=== PATIENT | male | born 1955 | race Caucasian/White ===

== ENCOUNTER 2020-11-11 16:15 | Inpatient (IN) | payer MEDICAID ==
[~2020-11-11] VITALS: Ht 165.1 cm; Wt 81.6 kg
[2020-11-11 18:11] LABS: BASOPHILS 0.1 % (0-2); EOSINOPHILS 0 % (0-7); HEMATOCRIT 40.2 % (42.0-54.0); HEMOGLOBIN 13.4 g/dL (13.5-17.5); IMMATURE GRANULOCYTES 0.3 % (0-5); LYMPHOCYTE ABS# 1.72 10x3/uL (1.32-3.57); LYMPHOCYTES 10.1 % (15-50); MCH 31.2 pg (26.0-34.0); MCHC 33.3 g/dL (31.0-37.0); MCV 93.7 fL (80.0-100.0); MEAN PLATELET VOLUME 9.7 fL (7.4-10.4); NEUTROPHIL ABS# 14.71 10x3/uL (1.78-5.38); NEUTROPHILS 86.5 % (40-80); PLATELET COUNT 344 10x3/uL (130-400); RBC 4.29 10x6/uL (4.20-6.10); RDW 13.8 % (11.5-14.5)
[2020-11-11 18:25] LABS: CALC OSMOLALITY 275 mosm/kg (275-300); CARBON DIOXIDE 27.8 mmol/L (21.0-32.0); CHLORIDE - SERUM 103 mmol/L (98-107); CREATININE - SERUM 0.8 mg/dL (0.6-1.3); GLUCOSE 142 mg/dL (74-106); POTASSIUM - SERUM 4.3 mmol/L (3.5-5.1); SODIUM 137 mmol/L (136-145); UREA NITROGEN 13 mg/dL (7-18); eGFR NON AFRICAN AMERICAN > 90 mL/min (90-120)
[2020-11-11 18:32] LABS: APTT 25.1 SECONDS (22.8-39.4); INR 1.08 (0.85-1.17)
[2020-11-11 18:39] LABS: ALBUMIN 3.6 g/dL (3.4-5.0); ALKALINE PHOSPHATASE 67 U/L (30-120); ALT (SGPT) 40 U/L (10-68); BILIRUBIN - TOTAL 0.28 mg/dL (0.2-1.3); CKMB 6.4 U/L (0.0-3.6); CREATINE KINASE 250 UL (21-232); PRO BNP 220 pg/mL (0-125); PROTEIN - SERUM 7.5 g/dL (6.4-8.2); TROPONIN-I < 0.017 ng/mL (0.000-0.060)
[2020-11-11 20:14] VITALS: BP 144/66
[2020-11-11 23:45] VITALS: BP 146/68
[2020-11-12] VITALS: BP 146/68
[2020-11-12] MEDS ORDERED: ELIQUIS2.5 MG PO (01:27)
[2020-11-12] MEDS ORDERED: XOPENEX HFA15 GM INH (01:28)
[2020-11-12] MEDS ORDERED: TRILOGY IH (01:36)
[2020-11-12] MEDS ORDERED: XALATAN 0.0052.5 ML EACH EYE (01:38)
[2020-11-12 04:00] VITALS: BP 127/63
[2020-11-12 06:09] LABS: BASOPHILS 0 % (0-2); EOSINOPHILS 0 % (0-7); HEMATOCRIT 39.4 % (42.0-54.0); HEMOGLOBIN 12.7 g/dL (13.5-17.5); IMMATURE GRANULOCYTES 0.4 % (0-5); LYMPHOCYTE ABS# 1.86 10x3/uL (1.32-3.57); LYMPHOCYTES 12.8 % (15-50); MCH 30.5 pg (26.0-34.0); MCHC 32.2 g/dL (31.0-37.0); MCV 94.5 fL (80.0-100.0); MEAN PLATELET VOLUME 10.6 fL (7.4-10.4); MONOCYTES 2.3 % (2-11); NEUTROPHIL ABS# 12.24 10x3/uL (1.78-5.38); NEUTROPHILS 84.5 % (40-80); PLATELET COUNT 327 10x3/uL (130-400); RBC 4.17 10x6/uL (4.20-6.10); RDW 14.1 % (11.5-14.5); WBC 14.5 10x3/uL (4.8-10.8)
[2020-11-12 06:38] LABS: CALC OSMOLALITY 273 mosm/kg (275-300); CARBON DIOXIDE 27.8 mmol/L (21.0-32.0); CHLORIDE - SERUM 102 mmol/L (98-107); CREATININE - SERUM 0.7 mg/dL (0.6-1.3); GLUCOSE 150 mg/dL (74-106); MAGNESIUM - SERUM 2.4 mg/dL (1.8-2.4); PHOSPHOROUS 2.5 mg/dL (2.5-4.9); POTASSIUM - SERUM 4.7 mmol/L (3.5-5.1); SODIUM 135 mmol/L (136-145); UREA NITROGEN 15 mg/dL (7-18); eGFR NON AFRICAN AMERICAN > 90 mL/min (90-120)
[2020-11-12 08:31] LABS: BILIRUBIN NEGATIVE (NEGATIVE); KETONE NEGATIVE (NEGATIVE); NITRITE NEGATIVE (NEGATIVE); UROBILINOGEN NORMAL mg/dL (< 2)
[2020-11-12 08:55] VITALS: BP 150/78
--- NOTE | 2020-11-12 09:21 | NUR ---
ALERT AND ORIENTED. ASSESSMENT COMPLETE. GUARD AT BEDSIDE. BED LOW. CALL STARKEY AND PERSONAL ITEMS IN REACH. DENIES NEEDS. WILL CONTINUE TO MONITOR.
[2020-11-12 12:37] VITALS: BP 120/53
[2020-11-12 13:35] VITALS: Ht 165.1 cm; Wt 81.6 kg
--- NOTE | 2020-11-12 13:36 | NUR ---
RESTING IN BED. DENIES NEEDS. WILL CONTINUE TO MONITOR.
[2020-11-12 16:42] VITALS: BP 136/68
[2020-11-12 20:00] VITALS: BP 127/74
--- NOTE | 2020-11-12 21:30 | NUR ---
PT SHOWERED AND BED CHANGED. PROVIDED INCENTIVE SPIROMETER AND INSTRUCTED ON USE. PT'S INITIAL TIDAL VOLUME REACHED 2000 AND INCREASED TO 2500. NO OTHER NEEDS. GUARD AT BEDSIDE.
[2020-11-13] VITALS: BP 137/88
[2020-11-13 04:00] VITALS: BP 105/60
[2020-11-13 08:10] LABS: BASOPHILS 0 % (0-2); EOSINOPHILS 0 % (0-7); HEMATOCRIT 38.1 % (42.0-54.0); HEMOGLOBIN 12.5 g/dL (13.5-17.5); IMMATURE GRANULOCYTES 0.4 % (0-5); LYMPHOCYTE ABS# 1.83 10x3/uL (1.32-3.57); LYMPHOCYTES 10.3 % (15-50); MCH 31.1 pg (26.0-34.0); MCHC 32.8 g/dL (31.0-37.0); MCV 94.8 fL (80.0-100.0); MONOCYTES 3.3 % (2-11); NEUTROPHIL ABS# 15.25 10x3/uL (1.78-5.38); PLATELET COUNT 309 10x3/uL (130-400); RBC 4.02 10x6/uL (4.20-6.10); RDW 14.2 % (11.5-14.5); WBC 17.7 10x3/uL (4.8-10.8)
--- NOTE | 2020-11-13 08:25 | NUR ---
PT RECIEVED ORANGE JUICE AND COFFEE. SAWYER RECIEVED COFFEE. NO FURTHER NEEDS AT THIS TIME. PT HAS SHACKLES AROUND HIS RIGHT ANKLE. CL IN REACH. NO FURTHER NEEDS AT THIS TIME. RIGHT EXTERNAL JUGULAR SALINE LOCKED. WCTM
[2020-11-13 08:28] LABS: CALC OSMOLALITY 277 mosm/kg (275-300); CALCIUM 8.8 mg/dL (8.5-10.1); CARBON DIOXIDE 25.5 mmol/L (21.0-32.0); CHLORIDE - SERUM 105 mmol/L (98-107); CREATININE - SERUM 0.7 mg/dL (0.6-1.3); GLUCOSE 135 mg/dL (74-106); MAGNESIUM - SERUM 2.4 mg/dL (1.8-2.4); PHOSPHOROUS 3.1 mg/dL (2.5-4.9); POTASSIUM - SERUM 4.4 mmol/L (3.5-5.1); SODIUM 137 mmol/L (136-145); eGFR NON AFRICAN AMERICAN > 90 mL/min (90-120)
[2020-11-13 08:29] LABS: UREA NITROGEN 19 mg/dL (7-18)
[2020-11-13 09:16] VITALS: BP 137/77
--- NOTE | 2020-11-13 12:45 | NUR ---
PT CO OF BUSBY. GAVE VISTERIL PER EMAR. JACQUES AT BEDSIDE. CL IN REACH. WCTM
[2020-11-13 14:22] VITALS: BP 137/75
[2020-11-13 18:32] VITALS: BP 134/80
[2020-11-13 21:25] VITALS: BP 146/68
[2020-11-14 00:55] VITALS: BP 137/80
[2020-11-14 05:59] LABS: BASOPHILS 0.1 % (0-2); EOSINOPHILS 0 % (0-7); HEMATOCRIT 39.1 % (42.0-54.0); HEMOGLOBIN 12.8 g/dL (13.5-17.5); LYMPHOCYTE ABS# 1.69 10x3/uL (1.32-3.57); LYMPHOCYTES 10.7 % (15-50); MCHC 32.7 g/dL (31.0-37.0); MCV 94.7 fL (80.0-100.0); MEAN PLATELET VOLUME 10.9 fL (7.4-10.4); MONOCYTES 4.1 % (2-11); NEUTROPHIL ABS# 13.27 10x3/uL (1.78-5.38); NEUTROPHILS 84.1 % (40-80); PLATELET COUNT 298 10x3/uL (130-400); RBC 4.13 10x6/uL (4.20-6.10); RDW 14.2 % (11.5-14.5); WBC 15.8 10x3/uL (4.8-10.8)
[2020-11-14 06:35] LABS: CALC OSMOLALITY 275 mosm/kg (275-300); CALCIUM 8.9 mg/dL (8.5-10.1); CARBON DIOXIDE 26.7 mmol/L (21.0-32.0); CHLORIDE - SERUM 103 mmol/L (98-107); CREATININE - SERUM 0.7 mg/dL (0.6-1.3); GLUCOSE 123 mg/dL (74-106); MAGNESIUM - SERUM 2.5 mg/dL (1.8-2.4); PHOSPHOROUS 3.3 mg/dL (2.5-4.9); SODIUM 136 mmol/L (136-145); UREA NITROGEN 21 mg/dL (7-18); eGFR NON AFRICAN AMERICAN > 90 mL/min (90-120)
[2020-11-14 06:36] LABS: POTASSIUM - SERUM 5.1 mmol/L (3.5-5.1)
[2020-11-14 08:08] LABS: IMMUNOGLOBULIN A 258 mg/dL (61-437); IMMUNOGLOBULIN G 949 mg/dL (603-1613)
[2020-11-14 08:26] VITALS: BP 125/77
--- NOTE | 2020-11-14 09:00 | NUR ---
PT STATES PAIN LEVEL AT A 8/10 ON THE PAIN SCALE. CL IN REACH. ALERT, ORIENTED, AND SHACKLE TO RIGHT ANKLE. GUARD IN ROOM. NO NEEDS AT THIS TIME. WCTM
--- NOTE | 2020-11-14 14:44 | NUR ---
PT HAS STATED HE HAS FINALLY GOTTEN SOME SLEEP. STATES PAIN IS WELL CONTROLLED. CL IN REACH. SAWYER IN ROOM. TAKING A "BREAK" FROM THE SCD'S. WCTM
[2020-11-15 06:15] VITALS: BP 142/74
[2020-11-15 06:37] LABS: CALC OSMOLALITY 283 mosm/kg (275-300); CALCIUM 9.1 mg/dL (8.5-10.1); CARBON DIOXIDE 26.8 mmol/L (21.0-32.0); CHLORIDE - SERUM 103 mmol/L (98-107); CREATININE - SERUM 0.9 mg/dL (0.6-1.3); GLUCOSE 167 mg/dL (74-106); MAGNESIUM - SERUM 2.5 mg/dL (1.8-2.4); PHOSPHOROUS 3.2 mg/dL (2.5-4.9); POTASSIUM - SERUM 4.5 mmol/L (3.5-5.1); SODIUM 137 mmol/L (136-145); UREA NITROGEN 28 mg/dL (7-18); eGFR NON AFRICAN AMERICAN > 90 mL/min (90-120)
[2020-11-15 06:45] LABS: HEMATOCRIT 39.2 % (42.0-54.0); HEMOGLOBIN 12.9 g/dL (13.5-17.5); LYMPHOCYTE ABS# 1.66 10x3/uL (1.32-3.57); MCHC 32.9 g/dL (31.0-37.0); MCV 94.2 fL (80.0-100.0); MEAN PLATELET VOLUME 10.5 fL (7.4-10.4); NEUTROPHIL ABS# 13.49 10x3/uL (1.78-5.38); PLATELET COUNT 327 10x3/uL (130-400); RBC 4.16 10x6/uL (4.20-6.10); RDW 14.3 % (11.5-14.5); WBC 16.4 10x3/uL (4.8-10.8)
--- NOTE | 2020-11-15 07:35 | NUR ---
RESTING IN BED WITH EYES OPEN, GUARD AT THE BEDSIDE. ALERT AND ORIENTED. IV LOCATED TO RIGHT EJ CURRENTLY SL. CURRENTLY RCVING 2.5L VIA NC. NO CURRENT S/S OF DISTRESS, DENIES CURRENT NEEDS, WILL CONT TO MONITOR.
[2020-11-15 09:03] VITALS: BP 138/63
--- NOTE | 2020-11-15 10:52 | NUR ---
REPORTED PAIN 7/10, ADMINISTERED MORHPINE PER ORDERS. WILL CONT TO MONITOR.
[2020-11-15 12:00] LABS: LYMPHOCYTES 8 % (15-50); MONOCYTES 7 % (2-11); NEUTROPHILS 81 % (40-80); PLATELET MORPHOLOGY GIANT PLTS PRESENT
[2020-11-15 12:01] LABS: ANISOCYTOSIS 1+; BURR CELLS OCC
[2020-11-15 12:23] LABS: PLATELET ESTIMATE NORMAL
[2020-11-15 12:53] VITALS: BP 126/77
[2020-11-15 16:01] VITALS: BP 135/76
[2020-11-15 20:00] VITALS: BP 138/77
--- NOTE | 2020-11-15 22:15 | NUR ---
Assumed care of pt after report/rounds. Pt lying in bed with guard next to him. Jugular line remains patent and flushes well. Pt denies pain. Pt alert and oriented and verbalizes wants/needs clearly, appropriately and without hesitation or difficulty.
[2020-11-16] VITALS: BP 128/74
[2020-11-16 04:00] VITALS: BP 145/84
--- NOTE | 2020-11-16 05:30 | NUR ---
Pt remains lying in bed at this time. Did c/o headache earlier with PRN MS given per order and eff results achieved. Does continue to get SOBOE but, does also verbalize feeling much better.
[2020-11-16 06:15] LABS: BASOPHILS 0.2 % (0-2); EOSINOPHILS 0 % (0-7); HEMOGLOBIN 12.8 g/dL (13.5-17.5); IMMATURE GRANULOCYTES 2.1 % (0-5); LYMPHOCYTE ABS# 1.77 10x3/uL (1.32-3.57); LYMPHOCYTES 9.7 % (15-50); MCH 30.8 pg (26.0-34.0); MCHC 32.8 g/dL (31.0-37.0); MEAN PLATELET VOLUME 10.2 fL (7.4-10.4); MONOCYTES 5.2 % (2-11); NEUTROPHILS 82.8 % (40-80); PLATELET COUNT 351 10x3/uL (130-400); RBC 4.15 10x6/uL (4.20-6.10); RDW 14.1 % (11.5-14.5); WBC 18.2 10x3/uL (4.8-10.8)
[2020-11-16 06:29] LABS: CALC OSMOLALITY 283 mosm/kg (275-300); CALCIUM 8.8 mg/dL (8.5-10.1); CARBON DIOXIDE 28.4 mmol/L (21.0-32.0); CHLORIDE - SERUM 102 mmol/L (98-107); CREATININE - SERUM 0.9 mg/dL (0.6-1.3); GLUCOSE 143 mg/dL (74-106); MAGNESIUM - SERUM 2.4 mg/dL (1.8-2.4); PHOSPHOROUS 3.8 mg/dL (2.5-4.9); POTASSIUM - SERUM 4.7 mmol/L (3.5-5.1); SODIUM 138 mmol/L (136-145); UREA NITROGEN 29 mg/dL (7-18); eGFR NON AFRICAN AMERICAN > 90 mL/min (90-120)
--- NOTE | 2020-11-16 07:46 | NUR ---
PT RESTING IN BED WATCHING TV. GUARD AT BEDSIDE. RESP SHALLOW. O2 @ 2.5L NC IN PLACE. IV TO RIGHT NECK SALINE LOC'D. SITE WITHOUT REDNESS OR EDEMA. PT DOES REPORT DISCOMFORT OF LOCATION OF IV. PT DENIES PAIN AT THIS TIME, OR FURTHER NEEDS. ENCOURAGED TO CALL WITH NEEDS. CL WITHIN REACH. CONTINUE POC
[2020-11-16 08:38] VITALS: BP 132/85
--- NOTE | 2020-11-16 12:00 | NUR ---
SPOKE WITH DR BERMAN REGARDING PT LOOSING IV ACCESS AND MULTIPLE ATTEMPTS TO GAIN ACCESS WITHOUT SUCCESS. DR. BERMAN REPORTS THAT HE WILL CHANGE IV SOLUMEDROL TO ORAL STEROIDS.
[2020-11-16 12:15] VITALS: BP 136/85
[2020-11-16 15:49] VITALS: BP 120/68
[2020-11-16 20:00] VITALS: BP 135/80
--- NOTE | 2020-11-16 20:00 | NUR ---
PT SITTING UP IN BED WITHOUT DISTRESS, AOX4. GUARD AT BEDSIDE. PROVIDED ICE WATER. DENIES OTHER NEEDS AT THIS TIME. CL IN REACH
[2020-11-17] VITALS: BP 135/83
[2020-11-17 04:00] VITALS: BP 134/81
[2020-11-17 05:11] LABS: IMMUNOGLOBULIN E 33 IU/mL (6-495)
[2020-11-17 09:10] VITALS: BP 131/74
[2020-11-17 12:35] VITALS: BP 141/78
--- NOTE | 2020-11-17 14:48 | NUR ---
RECEIVE SHIFT REPORT. RESTING IN BED WITH TV ON. GUARD AT BEDSIDE. DENIES ANY NEEDS AT THIS TIME. CONTINUE POC AND SAFETY PRECAUTIONS.
[2020-11-17 16:44] VITALS: BP 129/75
[2020-11-17 20:00] VITALS: BP 138/84
--- NOTE | 2020-11-17 20:00 | NUR ---
PT SITTING UP IN BED WITHOUT DISTRESS BUT STATES HE DOES FEEL LITTLE MORE SOB TONIGHT. WAS GOING TO TAKE SHOWER BUT STATES HE WILL WAIT TIL AM. DENIES NEEDS AT THIS TIME. CL IN REACH, GUARD AT BEDSIDE
[2020-11-18] VITALS: BP 118/79
[2020-11-18 04:00] VITALS: BP 156/82
[2020-11-18 06:25] LABS: HEMATOCRIT 38.7 % (42.0-54.0); HEMOGLOBIN 12.6 g/dL (13.5-17.5); MCH 30.5 pg (26.0-34.0); MCHC 32.6 g/dL (31.0-37.0); MCV 93.7 fL (80.0-100.0); MEAN PLATELET VOLUME 10.1 fL (7.4-10.4); NEUTROPHIL ABS# 12.21 10x3/uL (1.78-5.38); PLATELET COUNT 326 10x3/uL (130-400); RBC 4.13 10x6/uL (4.20-6.10); RDW 14.1 % (11.5-14.5); WBC 18.9 10x3/uL (4.8-10.8)
[2020-11-18 06:29] LABS: CALC OSMOLALITY 278 mosm/kg (275-300); CALCIUM 8.4 mg/dL (8.5-10.1); CARBON DIOXIDE 29.1 mmol/L (21.0-32.0); CHLORIDE - SERUM 104 mmol/L (98-107); CREATININE - SERUM 0.6 mg/dL (0.6-1.3); GLUCOSE 94 mg/dL (74-106); POTASSIUM - SERUM 4.1 mmol/L (3.5-5.1); SODIUM 138 mmol/L (136-145); UREA NITROGEN 20 mg/dL (7-18); eGFR NON AFRICAN AMERICAN > 90 mL/min (90-120)
--- NOTE | 2020-11-18 07:26 | NUR ---
PT IS RESTING IN BED WITH EYES OPEN. RESPIRATIONS ARE EVEN AND UNLABORED. PT IS AAO X 4 AND ANSWERS ALL QUESTIONS APPROPRIATELY. GUARD AT BEDSIDE. SHACKLE TO LLE. RUL AND RLL EXPIRATORY WHEEZE. PT DENIES PRESENCE OF SOB/DYSPNEA AT THIS TIME. O2 VIA NC @ 2.5L HUMIDIFIED. PT DENIES PRESENCE OF PAIN/N/V/DIZZINESS AT THIS TIME. PT WITHOUT IV ACCESS. INCENTIVE SPIROMETER AT BEDSIDE AND ENCOURAGED. FLUTTER VALVE AT BEDSIDE AND ENCOURAGED. PT VERBALIZES UNDERSTANDING AND DENIES FURTHER QUESTIONS. BED IS IN THE LOWEST POSITION. CALL LIGHT AND BEDSIDE TABLE ARE WITHIN REACH. SIDE RAILS X 2. PT DENIES FURTHER NEEDS. WILL CONT TO MONITOR.
[2020-11-18 09:11] VITALS: BP 127/70
[2020-11-18 09:43] LABS: EOSINOPHILS 1 % (0-7); LYMPHOCYTES 29 % (15-50); MONOCYTES 4 % (2-11); NEUTROPHILS 59 % (40-80)
[2020-11-18 09:44] LABS: PLATELET ESTIMATE INCREASED; PLATELET MORPHOLOGY NORMAL PLT MORPH
--- NOTE | 2020-11-18 12:31 | NUR ---
Nutrition follow-up: Pt continues to be assessed at low nutritional risk. RDN visited with pt during breakfast; pt happy with meals and reports a good appetite. Labs reviewed Wt: Low soidum RDN will review pts progress: 11/25/20
[2020-11-18 12:57] VITALS: BP 129/82
[2020-11-18 17:07] VITALS: BP 124/74
[2020-11-18 20:00] VITALS: BP 133/70
--- NOTE | 2020-11-18 20:00 | NUR ---
PT SITTING UP IN BED WITHOUT DISTRESS, AOX4. GUARD AT BEDSIDE. DENIES PAIN OR NEEDS. STATES HE HAD A BIG BOWEL MOVEMENT AND IS FEELING MUCH BETTER. CL IN REACH
[2020-11-19] VITALS: BP 138/82
[2020-11-19 04:00] VITALS: BP 117/66
[2020-11-19 05:31] LABS: BASOPHILS 0.2 % (0-2); EOSINOPHILS 1.4 % (0-7); HEMATOCRIT 37.5 % (42.0-54.0); HEMOGLOBIN 12.2 g/dL (13.5-17.5); IMMATURE GRANULOCYTES 4.3 % (0-5); LYMPHOCYTE ABS# 3.64 10x3/uL (1.32-3.57); LYMPHOCYTES 20.7 % (15-50); MCH 30.4 pg (26.0-34.0); MCHC 32.5 g/dL (31.0-37.0); MCV 93.5 fL (80.0-100.0); MEAN PLATELET VOLUME 9.9 fL (7.4-10.4); MONOCYTES 9.4 % (2-11); NEUTROPHIL ABS# 11.24 10x3/uL (1.78-5.38); PLATELET COUNT 307 10x3/uL (130-400); RBC 4.01 10x6/uL (4.20-6.10); WBC 17.6 10x3/uL (4.8-10.8)
[2020-11-19 05:38] LABS: CALC OSMOLALITY 275 mosm/kg (275-300); CALCIUM 8.1 mg/dL (8.5-10.1); CARBON DIOXIDE 30.9 mmol/L (21.0-32.0); CHLORIDE - SERUM 102 mmol/L (98-107); CREATININE - SERUM 0.7 mg/dL (0.6-1.3); GLUCOSE 86 mg/dL (74-106); POTASSIUM - SERUM 3.6 mmol/L (3.5-5.1); SODIUM 138 mmol/L (136-145); UREA NITROGEN 16 mg/dL (7-18); eGFR NON AFRICAN AMERICAN > 90 mL/min (90-120)
--- NOTE | 2020-11-19 08:09 | NUR ---
I have reviewed this patient and I concur with the Shift Assessment completed by the Licensed Practical Nurse today this shift.
[2020-11-19 09:33] VITALS: BP 134/83
--- NOTE | 2020-11-19 10:08 | NUR ---
PATIENT GONE FOR PORT PLACEMENT. CONTINUE [facility] PLAN OF CARE
[2020-11-19 11:04] VITALS: BP 135/78
[2020-11-19] MEDS ORDERED: TESSALON PERLE100 MG PO (13:57)
[2020-11-19] MEDS ORDERED: SINGULAIR10 MG PO (13:58)
[2020-11-19] MEDS ORDERED: MUCINEX DM ER1 EAC1 PO (13:58)
[2020-11-19] MEDS ORDERED: PREDNISONE10 MG PO (13:59)
[2020-11-19 20:13] VITALS: BP 89/56
--- NOTE | 2020-11-19 20:46 | NUR ---
DISCHARGE INSTRUCTIONS GIVEN TO SAWYER, PAPERWORK GIVEN TO EMS, DC'D WITH BELONGINGS
== END 2020-11-19 20:47 | DRG 193 ==
LOC: D.ER 16:15 → D.MS 20:00
PROVIDERS: Emergency Medicine; Family Medicine; Internal Medicine Pulmonary Disease; Surgery; ADMIT Family Medicine; ATTEND Family Medicine
PROC: 0JH63WZ Insertion of Totally Implantable Vascular Access Device into Chest Subcutaneous Tissue and Fascia, Percutaneous Approach (ICD-10-PCS; principal; 2020-11-19 08:00)
DX: J18.9 Pneumonia, unspecified organism (principal); J96.21 Acute and chronic respiratory failure with hypoxia; D64.9 Anemia, unspecified; I10 Essential (primary) hypertension; K21.9 Gastro-esophageal reflux disease without esophagitis; Z86.16 Personal history of COVID-19; J43.9 Emphysema, unspecified; G47.00 Insomnia, unspecified